=== PATIENT | male | born 1965 | race Caucasian/White ===

== ENCOUNTER 2018-08-29 00:46 | Outpatient (CLI) | payer BC, SELFPAY ==
--- NOTE | 2018-08-29 15:46 | DI.MRI_ITS ---
SYMPTOM/DIAGNOSIS: LOWER BACK PAIN M54.5, HX DEGENERATIVE DISC DISORDER, LUMBAR SPINE MRI LUMBAR SPINE: The study was carried out according to the usual protocol. There is no evidence of an acute fracture. The vertebral bodies are in good alignment. The facet joints are intact. There is no evidence of spondylolisthesis. The conus medullaris terminates normally at L1-2. There is a moderate size left paracentral and left foraminal broad based disc protrusion at L1-2 which results in moderate spinal stenosis and effacement of the left lateral recess resulting in mass effect on the descending left L2 nerve root. There is mild left foraminal narrowing. There is no significant right foraminal narrowing. At L2-3 a small disc bulge results in mild spinal canal stenosis and mild right to moderate left neural stenosis. At L3-4 a small disc bulge results in mild spinal canal stenosis and mild right to moderate left foraminal stenosis. At L4-5 a small disc bulge results in mild spinal canal stenosis and mild right and moderate left neural foraminal narrowing. At L5-S1 there is no evidence of disc pathology. There is no evidence of spinal stenosis. The paravertebral soft tissues are well maintained. SUMMARY: A moderate size central and left paracentral foraminal broad based disc protrusion is noted at L1-2 which results in moderate spinal canal stenosis and effacement of the left lateral recess resulting in mass effect on the descending L2 nerve root. There is no evidence of an acute fracture. The vertebral bodies are well maintained.
--- NOTE | 2018-08-30 08:26 | DI.VRAD_ITS ---
EXAM: MR Lumbar Spine Without Contrast. EXAM DATE/TIME: 08/29/2018 3:43 PM CLINICAL HISTORY: 53 years old, male; Low back pain; Patient HX: Herniated disc 2009, lbp. TECHNIQUE: Imaging protocol: Multiplanar magnetic resonance images of the lumbar spine without intravenous contrast. COMPARISON: No relevant prior studies available. FINDINGS: Vertebrae: No spondylolisthesis. No evidence of acute fracture or compression deformity. Facet joint alignments are maintained. Spinal cord: Conus medullaris terminates at L1-L2. L1-L2: Moderate size central/left paracentral/left foraminal broad disc protrusion at L1-L2 results in moderate spinal canal stenosis and effacement of the left lateral recess resulting in mass effect on the descending left L2 nerve root. Mild left neural foraminal narrowing. No significant right neural foraminal narrowing. L2-L3: Small disc bulge results in mild spinal canal stenosis and mild right and moderate left neural foraminal narrowing. L3-L4: Small disc bulge results in mild spinal canal stenosis and mild right and moderate left neural foraminal narrowing. L4-L5: Small disc bulge results in mild spinal canal stenosis and mild right and moderate left neural foraminal narrowing. L5-S1: No significant disc disease. No significant spinal stenosis. Soft tissues: No prevertebral soft tissue swelling. IMPRESSION: 1. Moderate size central/left paracentral/left foraminal broad disc protrusion at L1-L2 results in moderate spinal canal stenosis and effacement of the left lateral recess resulting in mass effect on the descending left L2 nerve root. 2. No evidence of acute fracture or compression deformity. Dictated and Authenticated by: Baltazar Hardy MD. Ordering:VINAY MONDRAGON MD
== END 2018-08-29 01:06 ==
PROVIDERS: PCP Registered Nurse; Visit Provider Registered Nurse
DX: M54.5 Low back pain (principal); M51.16 Intervertebral disc disorders with radiculopathy, lumbar region; M48.061 Spinal stenosis, lumbar region without neurogenic claudication
CPT/HCPCS: 72148

== ENCOUNTER 2018-10-11 11:20 | Outpatient (CLI) | payer BC, SELFPAY ==
[2018-10-11 12:02] VITALS: BP 123/83; PULSE 75; RESP 20; TEMP 36.8; O2SAT 97
[2018-10-11] MEDS: methylPREDNISolone ACETATE 40 MG/ML VIAL IJ (12:56)
[2018-10-11] MEDS: Omnipaque 240 MG/ML 50 ML BTL IJ (12:56)
--- NOTE | 2018-10-11 12:59 | DI.RAD_ITS ---
SYMPTOMS/DIAGNOSIS: LUMBAR RADICULOPATHY, LUMBAR EPIDURAL STEROID INJECTION PAIN CLINIC: Fluoroscopy Time: 20.5 sec Images submitted from the pain clinic demonstrate needle positioning over the left paramedian position at L 2 in conjunction with an epidural steroid injection carried out by Dr. Rodrigez. Please the procedure report for further information.
--- NOTE | 2018-10-11 13:01 | PDOC.PAIN ---
Pain Clinic Procedure Note Current Active Problems Problem Status Onset Lumbosacral radiculopathy Lumbar Epidural Steroid Injection Procedure Note COMMENTS: I did review the note from Ms. Desir from 08/30/18 and his most recent lumbar spine MRI. He did have this procedure about 10 years ago and had many years of relief. YAHIR POSADA has been referred to the [facility] for lumbar epidural steroid injection. The patient was greeted by the nurse who verified patients name and . Patient was then taken to the fluoroscopy suite. The patient was interviewed and the medial record reviewed. There were no medical, pharmacologic, radiographic, or other structural contraindications to attempting fluoroscopically guided lumbar epidural steroid injection. Risks and expected side effects as well as potential benefits of the procedure were reviewed and voiced concerns expressed. The patient consent form was signed and witnessed. Standard patient time-out procedure was performed. The patient was placed in the prone position on the fluoroscopy table and automated blood pressure cuff and pulse oximeter applied. The skin entry point for entering/approaching the epidural space at L1-L2 and marked. Following thorough chlorhexadine preparation of the skin and draping and 1% lidocaine infiltration of the skin entry point and subcutaneous tissues, a 18 gauge Touhy needle was placed under fluoroscopic guidance and with loss of resistance technique into the epidural space. Needle tip placement and depth were aided and confirmed by fluoroscopy. There was no paresthesia or return of blood or CSF through the needle. 1 cc's of Omnipaque 240 was injected with clear epidural spread confirmed with fluoroscopy. 80mg depomedrol was injected. There was not any unusual discomfort expressed by YAHIR POSADA. Patient's vital signs were stable throughout the procedure and were as recorded in nursing records. Follow up plans and appointments were discussed with patient. Post procedure instruction was given as documented in nursing records and having met discharge criteria and was discharged from the [facility]. COMMENTS: If this procedure is helpful, it can be completed up to 3 times per 12 months.
[2018-10-11 13:08] VITALS: BP 146/90; PULSE 77; RESP 13; O2SAT 100
== END 2018-10-11 11:40 ==
PROVIDERS: PCP Registered Nurse; Visit Provider Preventive Medicine Occupational Medicine
DX: M54.17 Radiculopathy, lumbosacral region (principal)
CPT/HCPCS: 62323; 72100; J1030; Q9967

== ENCOUNTER 2019-05-23 18:28 | Outpatient (REF) | payer BC, SELFPAY ==
[2019-05-23 20:57] LABS: Calculated LDL 183 mg/dL (<100); Cholesterol 249 mg/dL (<200); HDL Cholesterol 42 mg/dL (40-60); Triglyceride 123 mg/dL (<150)
== END 2019-05-23 18:48 ==
LOC: NCHCN 18:28
PROVIDERS: PCP Registered Nurse; Visit Provider Registered Nurse
DX: Z00.00 Encounter for general adult medical examination without abnormal findings (principal); E66.9 Obesity, unspecified
CPT/HCPCS: 80061

== ENCOUNTER 2020-02-10 20:49 | Outpatient (REF) | payer BC, SELFPAY ==
[2020-02-12 18:08] LABS: Patient Race White; SARS-CoV-2 RNA Undetected (Undetected); SARS-CoV-2 Specimen Source Nasal
== END 2020-02-10 21:09 ==
LOC: NCHCN 20:49
PROVIDERS: PCP Registered Nurse; Visit Provider Family Medicine
DX: Z11.59 Encounter for screening for other viral diseases (principal)
CPT/HCPCS: U0003